=== PATIENT | female | born 1995 | race Caucasian/White ===

== ENCOUNTER 2019-01-19 14:19 | Observation (INO) | payer BC ==
[2019-01-19] MEDS: Lactated Ringers 1,000 ML IV ONE ×2 (15:27→16:58)
[2019-01-19] MEDS ORDERED: Magnesium Sulfate/Water 4 GM in Premix Bag 1 BAG IV ONE (16:16)
[2019-01-19] MEDS ORDERED: Indomethacin 25 MG Cap PO PRN ×2 (16:16→22:22)
[2019-01-19] MEDS ORDERED: Calcium Gluconate 10% 1 GM/10 ML SDV IVPUSH PRN (16:16)
[2019-01-19] MEDS ORDERED: Betamethasone Acetate/Betamethasone Sod Phosphate 30 MG/5 ML MDV IM SCH (16:30)
[2019-01-19] MEDS: Magnesium Sulfate/Water 20 GM/500 ML BAG IV SCH (17:32)
[2019-01-19] MEDS ORDERED: Lactated Ringers 1,000 ML IV SCH (19:15)
[2019-01-20] MEDS: Magnesium Sulfate/Water 20 GM/500 ML BAG IV SCH (02:41)
[2019-01-20] MEDS ORDERED: Indomethacin 25 MG Cap PO ONE (10:20)
--- NOTE | 2019-01-28 22:20 | PCM.LDHP ---
L&D History of Present Illness - General Date of Service: 01/19/19 Admit Problem/Dx: contraction History Limitations: Reports: No Limitations - History of Present Illness Introduction:: 23yo at 26w5d presenting with leakage of fluid and contractions. Patient reports felt small gush and then started to have regular contraction q5min. No bleeding. +FM. Uncomplicated . Reports had contractions the prior and delivered at term. - Related Data Allergies/Adverse Reactions: Allergies Allergy/AdvReac Type Severity Reaction Status Date / Time No Known Allergies Allergy Verified 01/19/19 14:34 Home Medications: Home Meds Ascorbic Acid [Vitamin C] 1,000 mg PO 01/19/19 [History] Docusate Sodium [Colace] 1 cap PO DAILY 01/19/19 [History] PNV95/Ferrous Fumarate/FA [ Vitamin Tablet] 1 tab PO DAILY 01/19/19 [ History] Polyethylene Glycol 3350 [MiraLAX] 1 packet PO DAILY 01/19/19 [History] Past Medical History [employer] History: Reports: Psychiatric History: Reports: Anxiety, Other (See Below) Other Psychiatric History: recovering addict, 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 - Infectious Disease History Infectious Disease History: Reports: None - Past Surgical History HEENT Surgical History: Reports: Tonsillectomy GI Surgical History: Reports: Cholecystectomy, Other (See Below) Other GI Surgeries/Procedures: Hemmorhoidectomy x2 Musculoskeletal Surgical History: Reports: Other (See Below) Other Musculoskeletal Surgeries/Procedures:: bunionectomy Social & Family History - Family History Family Medical History: Noncontributory - Tobacco Use Smoking Status *Q: Former Smoker Used Tobacco, but Quit: Yes Month/Year Tobacco Last Used: 11/2018 Tobacco Use Comment: Quit cigarettes 2014, quit vaping 2 months ago. Second Hand Smoke Exposure: No H&P Review of Systems - Review of Systems: Review Of Systems: See Below General: Reports: No Symptoms HEENT: Reports: No Symptoms Pulmonary: Reports: No Symptoms Cardiovascular: Reports: No Symptoms Gastrointestinal: Reports: No Symptoms Genitourinary: Reports: Discharge (clear) Musculoskeletal: Reports: No Symptoms Skin: Reports: No Symptoms Psychiatric: Reports: No Symptoms L&D Exam - Exam Exam: See Below - Vital Signs Weight: 152 lb 8 oz - OB Specific Contraction Intensity: Moderate Movement: Active Heart Tones: Present Heart Tones per Min: 130 Heart Rate (FHR) Variability: Moderate (6-25 bmp) Presentation: Vertex - Exam General: Alert, Oriented, Cooperative Lungs: Normal Respiratory Effort GI/Abdominal Exam: Normal Bowel Sounds, Soft, Non-Tender, No Distention Genitourinary: Other (No pooling. ). No: Cervical discharge, Vaginal bleeding Extremities: Normal Inspection, Non-Tender, No Pedal Edema Skin: Warm, Dry, Intact Psychiatric: Alert, Normal Affect, Normal Mood - Patient Data Result Diagrams: 01/19/19 16:50 Problem List Initiated/Reviewed/Updated: Yes Assessment/Plan Comment:: 23yo presenting with leakage of fluid and labor. Reassuring status. - membranes intact: neg pooling, ferning and amniosure test - pelvic /-3, continue to have regular contractions - Category 1 tracing - Admit for OBS due to suspected labor - clear liquids, IVF - admit labs, continuous monitoring - FFN sent - MgSO4 for 24hr for neuroprotection - indomethacin 50mg PO loading for tocolysis, continue 25mg q8h if persistent contractions - betamethasone course - monitor closely, will transfer patient to higher level of care if progressing in labor
== END 2019-01-20 11:40 | disposition home or self-care (01) ==
LOC: MW.OB 14:19
PROVIDERS: ADMIT Obstetrics & Gynecology; ATTEND Obstetrics & Gynecology
DX: O60.02 Preterm labor without delivery, second trimester (principal); O09.212 Supervision of pregnancy with history of pre-term labor, second trimester; Z3A.26 26 weeks gestation of pregnancy; Z87.891 Personal history of nicotine dependence; Z79.899 Other long term (current) drug therapy; Z03.71 Encounter for suspected problem with amniotic cavity and membrane ruled out
CPT/HCPCS: 36415; 81001; 82731; 83735; 84112; 85027; 86850; 86900; 86901; 87081; 87491; 87591; 96361; 96365; 96366; 96372; 96376; A9270; G0378; J0702; J3475; J7120; 90471

== ENCOUNTER 2019-04-20 14:33 | Inpatient (IN) | payer BC ==
[2019-04-21] MEDS ORDERED: Nalbuphine 10 MG/1 ML Vial IVPUSH PRN (02:23)
[2019-04-21] MEDS ORDERED: Ondansetron 4 MG/2 ML SDV IVPUSH PRN (02:23)
[2019-04-21] MEDS ORDERED: Sodium Chloride 0.9% 2.5 ML Syringe FLUSH PRN (02:23)
[2019-04-21] MEDS ORDERED: Butorphanol 1 MG/ML SDV IVPUSH PRN (02:23)
[2019-04-21] MEDS ORDERED: Tranexamic Acid 1,000 MG in Sodium Chloride 0.9% 100 ML IV PRN (02:23)
[2019-04-21] MEDS ORDERED: Carboprost Tromethamine 250 MCG/1 ML Amp IM PRN (02:23)
[2019-04-21] MEDS ORDERED: Lidocaine 1% 50 ML MDV INJECT PRN (02:23)
[2019-04-21] MEDS ORDERED: Misoprostol 200 MCG Tab PO PRN (02:23)
[2019-04-21] MEDS ORDERED: Sodium Chloride 0.9% 10 ML SDV IV PRN (02:23)
[2019-04-21] MEDS ORDERED: Methylergonovine 0.2 MG/1 ML Amp IM PRN (02:23)
[2019-04-21] MEDS ORDERED: Water For Irrigation,Sterile 1,000 ML Container IRR PRN (02:23)
[2019-04-21] MEDS ORDERED: Sodium Chloride 0.9% 10 ML Syringe FLUSH PRN (02:23)
[2019-04-21] MEDS ORDERED: Oxytocin/0.9 % Sodium Chloride 30 UNIT/500 ML BAG IV SCH (02:30)
[2019-04-21] MEDS: Lactated Ringers 1,000 ML IV SCH ×2 (03:57→10:38)
--- NOTE | 2019-04-21 07:54 | PCM.PREANE ---
Preanesthetic Assessment - Anesthesia/Transfusion/Family Hx Anesthesia History: Prior Anesthesia Without Reaction Family History of Anesthesia Reaction: No Transfusion History: No Prior Transfusion(s) - Review of Systems General: No Symptoms Pulmonary: No Symptoms Cardiovascular: No Symptoms Gastrointestinal: No Symptoms Neurological: No Symptoms Other: Reports: None - Physical Assessment Height: 5 ft 2 in Weight: 73.028 kg ASA Class: 2 Mental Status: Alert & Oriented x3 Airway Class: Mallampati = 2 Dentition: Reports: Normal Dentition Thyro-Mental Finger Breadths: 3 Mouth Opening Finger Breadths: 3 ROM/Head Extension: Full Lungs: Clear to Auscultation, Normal Respiratory Effort Cardiovascular: Regular Rate, Regular Rhythm - Lab Values: Laboratory Last Values WBC 13.66 K/uL (4.0-11.0) H 04/21/19 03:38 RBC 4.33 M/uL (4.30-5.90) 04/21/19 03:38 Hgb 14.0 g/dL (12.0-16.0) 04/21/19 03:38 Hct 40.1 % (36.0-46.0) 04/21/19 03:38 MCV 92.6 fL (80.0-98.0) 04/21/19 03:38 MCH 32.3 pg (27.0-32.0) H 04/21/19 03:38 MCHC 34.9 g/dL (31.0-37.0) 04/21/19 03:38 RDW Std Deviation 44.1 fl (28.0-62.0) 04/21/19 03:38 RDW Coeff of Diego 13 % (11.0-15.0) 04/21/19 03:38 Plt Count 209 K/uL (150-400) 04/21/19 03:38 MPV 9.80 fL (7.40-12.00) 04/21/19 03:38 Nucleated RBC % 0.0 /100WBC 04/21/19 03:38 Nucleated RBCs # 0 K/uL 04/21/19 03:38 - Allergies Allergies/Adverse Reactions: Allergies Allergy/AdvReac Type Severity Reaction Status Date / Time No Known Allergies Allergy Verified 01/19/19 14:34 - Acknowledgements Anesthesia Type Planned: Epidural Pt an Appropriate Candidate for the Planned Anesthesia: Yes Alternatives and Risks of Anesthesia Discussed w Pt/Guardian: Yes Pt/Guardian Understands and Agrees with Anesthesia Plan: Yes PreAnesthesia Questionnaire HEENT History: Reports: None Cardiovascular History: Reports: None Respiratory History: Reports: None Gastrointestinal History: Reports: GERD Genitourinary History: Reports: None [employer]PER[employer] History: Reports: , Spontaneous LMP (Approximate): Musculoskeletal History: Reports: None Neurological History: Reports: None Psychiatric History: Reports: Anxiety, Other (See Below) Other Psychiatric History: recovering addict, 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 Endocrine/Metabolic History: Reports: None Hematologic History: Reports: None Immunologic History: Reports: None Oncologic (Cancer) History: Reports: None Dermatologic History: Reports: None - Infectious Disease History Infectious Disease History: Reports: None - Past Surgical History HEENT Surgical History: Reports: Tonsillectomy GI Surgical History: Reports: Cholecystectomy, Other (See Below) Other GI Surgeries/Procedures: Hemmorhoidectomy x2 Musculoskeletal Surgical History: Reports: Other (See Below) Other Musculoskeletal Surgeries/Procedures:: bunionectomy - SUBSTANCE USE Smoking Status *Q: Former Smoker Tobacco Use Within Last Twelve Months: No Recreational Drug Use History: No - HOME MEDS Home Medications: Home Meds Ascorbic Acid [Vitamin C] 1,000 mg PO 01/19/19 [History] Docusate Sodium [Colace] 1 cap PO DAILY 01/19/19 [History] Pnv No.95/Ferrous Fum/Folic AC [ Vitamin Tablet] 1 tab PO DAILY [History] Polyethylene Glycol 3350 [MiraLAX] 1 packet PO DAILY 01/19/19 [History] - CURRENT (IN HOUSE) MEDS Current Meds: Current Medications Butorphanol Tartrate (Stadol) 1 mg IVPUSH Q1H PRN PRN Reason: Pain Carboprost Tromethamine (Hemabate Ds) 250 mcg IM ASDIRECTED PRN PRN Reason: Post Hemorrhage Tranexamic Acid 1,000 mg/ (Sodium Chloride) 110 mls @ 660 mls/hr IV ONETIME PRN PRN Reason: Bleeding Lactated Ringer's (Ringers, Lactated) 1,000 mls @ 150 mls/hr IV ASDIRECTED BETZAIDA Last Admin: 04/21/19 03:57 Dose: 150 mls/hr Oxytocin/Sodium Chloride (Oxytocin 30 Unit/500 Ml-Ns) 30 unit in 500 mls @ 500 mls/hr IV TITRATE BETZAIDA Lidocaine HCl (Xylocaine 1%) 50 ml INJECT ONETIME PRN PRN Reason: Laceration repair Methylergonovine Maleate (Methergine) 0.2 mg IM ASDIRECTED PRN PRN Reason: Post Hemorrhage Misoprostol (Cytotec) 200 mcg PO ONETIME PRN PRN Reason: Post Hemorrhage Nalbuphine HCl (Nubain) 10 mg IVPUSH Q1H PRN PRN Reason: Pain (severe 7-10) Ondansetron HCl (Zofran) 4 mg IVPUSH Q6H PRN PRN Reason: Nausea/Vomiting Sodium Chloride (Saline Flush) 10 ml FLUSH ASDIRECTED PRN PRN Reason: Keep Vein Open Sodium Chloride (Saline Flush) 2.5 ml FLUSH ASDIRECTED PRN PRN Reason: Keep Vein Open Sodium Chloride (Normal Saline) 10 ml IV ASDIRECTED PRN PRN Reason: IV Use Sterile Water (Sterile Water For Irrigation) 1,000 ml IRR ASDIRECTED PRN PRN Reason: delivery
[2019-04-21] MEDS ORDERED: Bupivicaine/fentaNYL/NS 250 ML ONE (08:08)
[2019-04-21] MEDS ORDERED: oxyCODONE 5 MG Tab PO PRN (15:06)
[2019-04-21] MEDS ORDERED: Docusate Sodium 100 MG Cap PO PRN (15:06)
[2019-04-21] MEDS ORDERED: Bisacodyl 10 MG Supp RECTAL PRN (15:06)
[2019-04-21] MEDS ORDERED: Lanolin 100% Cream 7 GM Tube TOP PRN (15:06)
[2019-04-21] MEDS ORDERED: Benzocaine/Menthol 20%-0.5% Spray 78 GM Cannister TOP PRN (15:06)
[2019-04-21] MEDS ORDERED: Witch Hazel Medicated Pads 40/Jar TOP PRN (15:06)
[2019-04-21] MEDS ORDERED: Ibuprofen 400 MG Tab PO PRN (15:06)
[2019-04-21] MEDS ORDERED: Acetaminophen 500 MG Tab PO PRN (15:06)
--- NOTE | 2019-04-21 15:10 | PCM.DEL ---
L & D Note - General Info Date of Service: 04/21/19 Mother's Due Date: 04/22/19 - Delivery Note Labor: Spontaneous, Augmented by ARM Delivery Outcome: Livebirth Presentation: Left Occiput Anterior (ABRAHAM) Nuchal Cord: None Anesthesia Type: None, Epidural Anesthetic: Lidocaine (Xylocaine) 1% Plain Local Anesthetic Volume: 2cc Amniotic Fluid Description: Clear Episiotomy Type: None Laceration: 1st Degree Suture type: Other (monocryl ) Suture size: 3-0 Placenta: Intact Cord: 3 Vessels Estimated Blood Loss: 300 Resuscitation Needed: No Score 1 min: 9 Score 5 min: 10 Delivery Comments (Free Text/Narrative):: Live male delivered at 1433 , 9 , 10 , weight pending - General Info Date of Service: 04/21/19 - Patient Data Weight - Most Recent: 73.028 kg Lab Results Last 24 Hours: Laboratory Results - last 24 hr 04/21/19 04/21/19 Range/Units 03:38 03:38 WBC 13.66 H (4.0-11.0) K/uL RBC 4.33 (4.30-5.90) M/uL Hgb 14.0 (12.0-16.0) g/dL Hct 40.1 (36.0-46.0) % MCV 92.6 (80.0-98.0) fL MCH 32.3 H (27.0-32.0) pg MCHC 34.9 (31.0-37.0) g/dL RDW Std Deviation 44.1 (28.0-62.0) fl RDW Coeff of Diego 13 (11.0-15.0) % Plt Count 209 (150-400) K/uL MPV 9.80 (7.40-12.00) fL Nucleated RBC % 0.0 /100WBC Nucleated RBCs # 0 K/uL Blood Type A POSITIVE Antibody Screen POSITIVE Prewarmed Antibody Srcn NEGATIVE Antibody Identification Cancelled Cold Antibody Screen POSITIVE Med Orders - Current: Current Medications Acetaminophen (Tylenol Extra Strength) 500 mg PO Q4H PRN PRN Reason: Pain Acetaminophen (Tylenol Extra Strength) 1,000 mg PO Q4H PRN PRN Reason: Pain Benzocaine/Menthol (Dermoplast Pain Relief 20%-0.5% [place]) 78 gm TOP ASDIRECTED PRN PRN Reason: Perineal Comfort Measure Bisacodyl (Dulcolax) 10 mg RECTAL ONETIME PRN PRN Reason: Constipation Butorphanol Tartrate (Stadol) 1 mg IVPUSH Q1H PRN PRN Reason: Pain Carboprost Tromethamine (Hemabate Ds) 250 mcg IM ASDIRECTED PRN PRN Reason: Post Hemorrhage Docusate Sodium (Colace) 100 mg PO BID PRN PRN Reason: Constipation Emollient Ointment (Lansinoh Hpa) 0 gm TOP ASDIRECTED PRN PRN Reason: Sore Nipples Tranexamic Acid 1,000 mg/ (Sodium Chloride) 110 mls @ 660 mls/hr IV ONETIME PRN PRN Reason: Bleeding Lactated Ringer's (Ringers, Lactated) 1,000 mls @ 150 mls/hr IV ASDIRECTED BETZAIDA Last Admin: 04/21/19 03:57 Dose: 150 mls/hr Oxytocin/Sodium Chloride (Oxytocin 30 Unit/500 Ml-Ns) 30 unit in 500 mls @ 500 mls/hr IV TITRATE [facility] Ibuprofen (Motrin) 400 mg PO Q4H PRN PRN Reason: Pain Ibuprofen (Motrin) 800 mg PO Q6H PRN PRN Reason: Pain Lidocaine HCl (Xylocaine 1%) 50 ml INJECT ONETIME PRN PRN Reason: Laceration repair Methylergonovine Maleate (Methergine) 0.2 mg IM ASDIRECTED PRN PRN Reason: Post Hemorrhage Misoprostol (Cytotec) 200 mcg PO ONETIME PRN PRN Reason: Post Hemorrhage Nalbuphine HCl (Nubain) 10 mg IVPUSH Q1H PRN PRN Reason: Pain (severe 7-10) Ondansetron HCl (Zofran) 4 mg IVPUSH Q6H PRN PRN Reason: Nausea/Vomiting Oxycodone HCl (Oxycodone) 5 mg PO Q2H PRN PRN Reason: Pain Sodium Chloride (Saline Flush) 10 ml FLUSH ASDIRECTED PRN PRN Reason: Keep Vein Open Sodium Chloride (Saline Flush) 2.5 ml FLUSH ASDIRECTED PRN PRN Reason: Keep Vein Open Sodium Chloride (Normal Saline) 10 ml IV ASDIRECTED PRN PRN Reason: IV Use Sterile Water (Sterile Water For Irrigation) 1,000 ml IRR ASDIRECTED PRN PRN Reason: delivery Witch Aruna (Tucks) 1 pad TOP ASDIRECTED PRN PRN Reason: comfort care Discontinued Medications Fentanyl/Bupivacaine HCl (Fentanyl/Bupivacaine/Ns 2 Mcg-0.125% 250 Ml) Confirm Administered Dose 250 mls @ as directed .ROUTE .STK-MED ONE Stop: 04/21/19 08:09 - Problem List & Annotations (1) Vaginal delivery SNOMED Code(s): 123161835 Code(s): O80 - ENCOUNTER FOR FULL-TERM UNCOMPLICATED DELIVERY Status: Acute Current Visit: Yes - Problem List Review Problem List Initiated/Reviewed/Updated: No - My Orders Last 24 Hours: My Active Orders 04/21/19 15:06 May Shower [RC] ASDIRECTED Up ad Joyce [RC] ASDIRECTED Vital Signs [RC] PER UNIT ROUTINE Acetaminophen [Tylenol Extra Strength] 1,000 mg PO Q4H PRN Acetaminophen [Tylenol Extra Strength] 500 mg PO Q4H PRN Benzocaine/Menthol [Dermoplast Pain Relief 20%-0.5% [place]] 78 gm TOP ASDIRECTED PRN Bisacodyl [Dulcolax] 10 mg RECTAL ONETIME PRN Docusate Sodium [Colace] 100 mg PO BID PRN Ibuprofen [Motrin] 400 mg PO Q4H PRN Ibuprofen [Motrin] 800 mg PO Q6H PRN Lanolin [Lansinoh HPA] See Dose Instructions TOP ASDIRECTED PRN Jose Valdovinos [Tucks] 1 pad TOP ASDIRECTED PRN oxyCODONE 5 mg PO Q2H PRN Assess Lochia [WOMSER] Per Unit Routine Assess Uterine Involution [WOMSER] Per Unit Routine Peripheral IV Discontinue [OM.PC] Routine 04/22/19 05:11 HEMOGLOBIN/HEMATOCRIT,HH [HEME] Timed
[2019-04-21] MEDS: Ibuprofen 800 MG Tab PO PRN (17:47)
[2019-04-21] MEDS: Acetaminophen 500 MG Tab PO PRN (17:48)
--- NOTE | 2019-04-22 07:23 | PCM.POSTAN ---
POST ANESTHESIA ASSESSMENT - VITAL SIGNS Vital Signs: Last Vital Signs Temp 36.6 C 04/22/19 04:00 Pulse 69 04/22/19 04:00 Resp 14 04/22/19 04:00 BP 101/50 L 04/22/19 04:00 Pulse Ox 96 04/22/19 04:00 - RESPIRATORY Respiratory Status: Respiratory Rate WNL - CARDIOVASCULAR CV Status: Pulse Rate WNL - GASTROINTESTINAL GI Status: No Symptoms - POST OP HYDRATION Hydration Status: Adequate & Stable
--- NOTE | 2019-04-22 07:23 | PCM48HPAN ---
Post Anesthesia Note - EVALUATION WITHIN 48HRS OF ANESTHETIC Vital Signs in Normal Range: Yes Patient Participated in Evaluation: Yes Respiratory Function Stable: Yes Airway Patent: Yes Cardiovascular Function Stable: Yes Hydration Status Stable: Yes Pain Control Satisfactory: Yes Nausea and Vomiting Control Satisfactory: Yes Mental Status Recovered: Yes Vital Signs: Last Vital Signs Temp 36.6 C 04/22/19 04:00 Pulse 69 04/22/19 04:00 Resp 14 04/22/19 04:00 BP 101/50 L 04/22/19 04:00 Pulse Ox 96 04/22/19 04:00
--- NOTE | 2019-04-22 09:18 | PCM.PNPP ---
- General Info Date of Service: 04/22/19 Functional Status: Reports: Pain Controlled, Tolerating Diet, Ambulating, Urinating, Other (. Baby having O2 desaturation when feeding. Bleeding is light. ) - Review of Systems General: Reports: No Symptoms HEENT: Reports: No Symptoms Pulmonary: Reports: No Symptoms Cardiovascular: Reports: No Symptoms Gastrointestinal: Reports: No Symptoms Genitourinary: Reports: No Symptoms Musculoskeletal: Reports: No Symptoms Skin: Reports: No Symptoms Neurological: Reports: No Symptoms Psychiatric: Reports: No Symptoms - Patient Data Vital Signs - Most Recent: Last Vital Signs Temp 36.6 C 04/22/19 04:00 Pulse 69 04/22/19 04:00 Resp 14 04/22/19 04:00 BP 101/50 L 04/22/19 04:00 Pulse Ox 96 04/22/19 04:00 Weight - Most Recent: 161 lb Lab Results - Last 24 Hours: Laboratory Results - last 24 hr 04/21/19 04/22/19 Range/Units 03:38 05:53 Hgb 12.6 (12.0-16.0) g/dL Hct 38.3 (36.0-46.0) % Blood Type A POSITIVE Antibody Screen POSITIVE Prewarmed Antibody Srcn NEGATIVE Antibody Identification Cancelled Cold Antibody Screen POSITIVE Med Orders - Current: Current Medications Acetaminophen (Tylenol Extra Strength) 500 mg PO Q4H PRN PRN Reason: Pain Acetaminophen (Tylenol Extra Strength) 1,000 mg PO Q4H PRN PRN Reason: Pain Last Admin: 04/21/19 17:48 Dose: 1,000 mg Benzocaine/Menthol (Dermoplast Pain Relief 20%-0.5% [place]) 78 gm TOP ASDIRECTED PRN PRN Reason: Perineal Comfort Measure Last Admin: 04/21/19 17:48 Dose: 78 gm Bisacodyl (Dulcolax) 10 mg RECTAL ONETIME PRN PRN Reason: Constipation Butorphanol Tartrate (Stadol) 1 mg IVPUSH Q1H PRN PRN Reason: Pain Carboprost Tromethamine (Hemabate Ds) 250 mcg IM ASDIRECTED PRN PRN Reason: Post Hemorrhage Docusate Sodium (Colace) 100 mg PO BID PRN PRN Reason: Constipation Emollient Ointment (Lansinoh Hpa) 0 gm TOP ASDIRECTED PRN PRN Reason: Sore Nipples Tranexamic Acid 1,000 mg/ (Sodium Chloride) 110 mls @ 660 mls/hr IV ONETIME PRN PRN Reason: Bleeding Lactated Ringer's (Ringers, Lactated) 1,000 mls @ 150 mls/hr IV ASDIRECTED COUNT INCLUDES THE [facility] Last Admin: 04/21/19 10:38 Dose: 150 mls/hr Oxytocin/Sodium Chloride (Oxytocin 30 Unit/500 Ml-Ns) 30 unit in 500 mls @ 500 mls/hr IV TITRATE COUNT INCLUDES THE [facility] Last Admin: 04/21/19 13:37 Dose: 500 mls/hr Ibuprofen (Motrin) 400 mg PO Q4H PRN PRN Reason: Pain Ibuprofen (Motrin) 800 mg PO Q6H PRN PRN Reason: Pain Last Admin: 04/21/19 17:47 Dose: 800 mg Lidocaine HCl (Xylocaine 1%) 50 ml INJECT ONETIME PRN PRN Reason: Laceration repair Methylergonovine Maleate (Methergine) 0.2 mg IM ASDIRECTED PRN PRN Reason: Post Hemorrhage Misoprostol (Cytotec) 200 mcg PO ONETIME PRN PRN Reason: Post Hemorrhage Nalbuphine HCl (Nubain) 10 mg IVPUSH Q1H PRN PRN Reason: Pain (severe 7-10) Ondansetron HCl (Zofran) 4 mg IVPUSH Q6H PRN PRN Reason: Nausea/Vomiting Oxycodone HCl (Oxycodone) 5 mg PO Q2H PRN PRN Reason: Pain Sodium Chloride (Saline Flush) 10 ml FLUSH ASDIRECTED PRN PRN Reason: Keep Vein Open Sodium Chloride (Saline Flush) 2.5 ml FLUSH ASDIRECTED PRN PRN Reason: Keep Vein Open Sodium Chloride (Normal Saline) 10 ml IV ASDIRECTED PRN PRN Reason: IV Use Sterile Water (Sterile Water For Irrigation) 1,000 ml IRR ASDIRECTED PRN PRN Reason: delivery Witch Aruna (Tucks) 1 pad TOP ASDIRECTED PRN PRN Reason: comfort care Discontinued Medications Fentanyl/Bupivacaine HCl (Fentanyl/Bupivacaine/Ns 2 Mcg-0.125% 250 Ml) Confirm Administered Dose 250 mls @ as directed .ROUTE .K-MED ONE Stop: 04/21/19 08:09 - Infant Interaction Infant Disposition, : [place] to Nursery Infant Interaction: Holding Support Person: - Recovery Exam Fundal Tone: Firm Fundal Level: At Umbilicus Fundal Placement: Midline Lochia Amount: Small Lochia Color: Rubra/Red Perineum Description: Edematous Episiotomy/Laceration: Approximated Bladder Status: Nonpalpable - Exam General: Alert, Oriented, Cooperative, No Acute Distress HEENT: Pupils Equal, Pupils Reactive, EOMI Neck: Supple, Trachea Midline, No JVD Lungs: Normal Respiratory Effort GI/Abdominal Exam: Soft, Non-Tender, No Distention Extremities: Normal Inspection, Normal Range of Motion, Non-Tender, No Pedal Edema Skin: Warm, Dry, Intact Neurological: No New Focal Deficit Psy/Mental Status: Alert, Normal Affect, Normal Mood - Problem List Review Problem List Initiated/Reviewed/Updated: No - My Orders Last 24 Hours: My Active Orders 04/22/19 09:06 Ready for Discharge [RC] PER UNIT ROUTINE - Assessment Assessment:: PPD1 s/p , stable and doing well. - Plan Plan:: VSS Hgb 12, bleeding light, no s/s of anemia Ambulating and voiding and pumping, baby has some desaturations when feeding, being evaluated Stable for discharge home if baby is stable to be discharged Reviewed care instructions
[2019-04-22] MEDS: Ibuprofen 800 MG Tab PO PRN ×2 (11:20→21:54)
[2019-04-22] MEDS: Acetaminophen 500 MG Tab PO PRN ×2 (11:22→21:55)
--- NOTE | 2019-04-23 10:55 | PCM.PNPP ---
- General Info Date of Service: 04/23/19 Functional Status: Reports: Pain Controlled, Tolerating Diet, Ambulating, Urinating - Review of Systems General: Reports: No Symptoms HEENT: Reports: No Symptoms Pulmonary: Reports: No Symptoms Cardiovascular: Reports: No Symptoms Gastrointestinal: Reports: No Symptoms Genitourinary: Reports: No Symptoms Musculoskeletal: Reports: No Symptoms Skin: Reports: No Symptoms Neurological: Reports: No Symptoms Psychiatric: Reports: No Symptoms - Patient Data Vital Signs - Most Recent: Last Vital Signs Temp 36.1 C 04/23/19 07:55 Pulse 66 04/23/19 07:55 Resp 16 04/23/19 07:55 BP 110/76 04/23/19 07:55 Pulse Ox 95 04/23/19 07:55 Weight - Most Recent: 161 lb Med Orders - Current: Current Medications Acetaminophen (Tylenol Extra Strength) 500 mg PO Q4H PRN PRN Reason: Pain Acetaminophen (Tylenol Extra Strength) 1,000 mg PO Q4H PRN PRN Reason: Pain Last Admin: 04/22/19 21:55 Dose: 1,000 mg Benzocaine/Menthol (Dermoplast Pain Relief 20%-0.5% [place]) 78 gm TOP ASDIRECTED PRN PRN Reason: Perineal Comfort Measure Last Admin: 04/21/19 17:48 Dose: 78 gm Bisacodyl (Dulcolax) 10 mg RECTAL ONETIME PRN PRN Reason: Constipation Butorphanol Tartrate (Stadol) 1 mg IVPUSH Q1H PRN PRN Reason: Pain Carboprost Tromethamine (Hemabate Ds) 250 mcg IM ASDIRECTED PRN PRN Reason: Post Hemorrhage Docusate Sodium (Colace) 100 mg PO BID PRN PRN Reason: Constipation Emollient Ointment (Lansinoh Hpa) 0 gm TOP ASDIRECTED PRN PRN Reason: Sore Nipples Tranexamic Acid 1,000 mg/ (Sodium Chloride) 110 mls @ 660 mls/hr IV ONETIME PRN PRN Reason: Bleeding Lactated Ringer's (Ringers, Lactated) 1,000 mls @ 150 mls/hr IV ASDIRECTED BETZAIDA Last Admin: 04/21/19 10:38 Dose: 150 mls/hr Oxytocin/Sodium Chloride (Oxytocin 30 Unit/500 Ml-Ns) 30 unit in 500 mls @ 500 mls/hr IV TITRATE BETZAIDA Last Admin: 04/21/19 13:37 Dose: 500 mls/hr Ibuprofen (Motrin) 400 mg PO Q4H PRN PRN Reason: Pain Ibuprofen (Motrin) 800 mg PO Q6H PRN PRN Reason: Pain Last Admin: 04/22/19 21:54 Dose: 800 mg Lidocaine HCl (Xylocaine 1%) 50 ml INJECT ONETIME PRN PRN Reason: Laceration repair Methylergonovine Maleate (Methergine) 0.2 mg IM ASDIRECTED PRN PRN Reason: Post Hemorrhage Misoprostol (Cytotec) 200 mcg PO ONETIME PRN PRN Reason: Post Hemorrhage Nalbuphine HCl (Nubain) 10 mg IVPUSH Q1H PRN PRN Reason: Pain (severe 7-10) Ondansetron HCl (Zofran) 4 mg IVPUSH Q6H PRN PRN Reason: Nausea/Vomiting Oxycodone HCl (Oxycodone) 5 mg PO Q2H PRN PRN Reason: Pain Sodium Chloride (Saline Flush) 10 ml FLUSH ASDIRECTED PRN PRN Reason: Keep Vein Open Sodium Chloride (Saline Flush) 2.5 ml FLUSH ASDIRECTED PRN PRN Reason: Keep Vein Open Sodium Chloride (Normal Saline) 10 ml IV ASDIRECTED PRN PRN Reason: IV Use Sterile Water (Sterile Water For Irrigation) 1,000 ml IRR ASDIRECTED PRN PRN Reason: delivery Witch Aruna (Tucks) 1 pad TOP ASDIRECTED PRN PRN Reason: comfort care Discontinued Medications Fentanyl/Bupivacaine HCl (Fentanyl/Bupivacaine/Ns 2 Mcg-0.125% 250 Ml) Confirm Administered Dose 250 mls @ as directed .ROUTE .STK-MED ONE Stop: 04/21/19 08:09 - Infant Interaction Disposition, : [place] to Nursery Infant Interaction: Holding Infant Feeding: Breastfed Infant; Nursed Well Support Person: - Recovery Exam Fundal Tone: Firm Fundal Level: 1 Fingerbreadths Below Umbilicus Fundal Placement: Midline Lochia Amount: Scant Lochia Color: Rubra/Red Perineum Description: Other (see below) Other Perinuem Description: 1st degree laceration. Episiotomy/Laceration: Approximated Bladder Status: Voiding - Exam General: Alert, Oriented, Cooperative, No Acute Distress HEENT: Pupils Equal, Pupils Reactive, EOMI Neck: Supple, Trachea Midline, No JVD Lungs: Normal Respiratory Effort GI/Abdominal Exam: Soft, Non-Tender, No Distention Extremities: Normal Inspection, Normal Range of Motion, Non-Tender, No Pedal Edema Skin: Warm, Dry, Intact Wound/Incisions: Healing Well Neurological: No New Focal Deficit Psy/Mental Status: Alert, Normal Affect, Normal Mood - Problem List Review Problem List Initiated/Reviewed/Updated: Yes - My Orders Last 24 Hours: My Active Orders 04/23/19 10:52 Ready for Discharge [RC] PER UNIT ROUTINE - Assessment Assessment:: PPD2 s/p , stable and doing well. - Plan Plan:: VSS Hgb 12, bleeding light, no s/s of anemia Ambulating and voiding baby well now Stable for discharge home Reviewed care instructions
== END 2019-04-23 11:53 | disposition home or self-care (01) | DRG 560 ==
LOC: MW.OB 14:33 → OBSVTOIN 04-21 14:33 → MW.OB 04-21 19:53
PROVIDERS: ADMIT Obstetrics & Gynecology; ATTEND Obstetrics & Gynecology
PROC: 10E0XZZ Delivery of Products of Conception, External Approach (ICD-10-PCS; principal; 2019-04-21)
PROC: 10907ZC Drainage of Amniotic Fluid, Therapeutic from Products of Conception, Via Natural or Artificial Opening (ICD-10-PCS; 2019-04-21)
PROC: 0HQ9XZZ Repair Perineum Skin, External Approach (ICD-10-PCS; 2019-04-21)
PROC: 3E0R3BZ Introduction of Anesthetic Agent into Spinal Canal, Percutaneous Approach (ICD-10-PCS; 2019-04-21)
DX: O70.0 First degree perineal laceration during delivery (principal); Z37.0 Single live birth; Z3A.39 39 weeks gestation of pregnancy
CPT/HCPCS: 36415; 59025; 59409; 85014; 85018; 85027; 86156; 86593; 86850; 86900; 86901; A9270-GY; J2590; J7120

== ENCOUNTER 2022-01-14 18:42 | Emergency (ER) | payer BC ==
[2022-01-14] MEDS ORDERED: Sodium Chloride 0.9% 2.5 ML Syringe FLUSH PRN (19:23)
[2022-01-14] MEDS ORDERED: Sodium Chloride 0.9% 10 ML Syringe FLUSH PRN (19:23)
[2022-01-14] MEDS ORDERED: Sodium Chloride 0.9% 1,000 ML IV ONE ×2 (19:24→21:59)
[2022-01-14 22:03] LABS: CARBON DIOXIDE,CO2 27.4 mmol/L (21.0-32.0); POTASSIUM,K 3.8 mmol/L (3.5-5.1)
[2022-01-14] MEDS ORDERED: Iopamidol 755 MG/ML 500 ML Multipack Bottle IVPUSH STA (22:34)
[2022-01-15 00:11] LABS: C. TRACHOMATIS BY PCR NOT DETECTED; N. GONORRHOEAE BY PCR NOT DETECTED
== END 2022-01-15 00:15 | disposition home or self-care (01) ==
LOC: MW.ED 18:42
DX: N76.0 Acute vaginitis (principal); B96.89 Other specified bacterial agents as the cause of diseases classified elsewhere; Z79.899 Other long term (current) drug therapy; Z90.49 Acquired absence of other specified parts of digestive tract
CPT/HCPCS: 36415; 74177; 80053; 81003; 81025; 85025; 87480; 87491; 87510; 87591; 87660; 96360; 96361; 99284; J7030; Q9967

== ENCOUNTER 2022-03-02 09:04 | Day surgery (SDC) | payer BC ==
[~2022-03-02 09:04] MED LIST: Bupivacaine 0.25% 30 ML SDV ONE; Lactated Ringers 1,000 ML IV SCH; Methylene Blue 50 MG/10 ML Ampule ONE
[2022-03-02] MEDS ORDERED: Succinylcholine/Sod PF 100 MG/5 ML SYRINGE IV ONE (10:12)
[2022-03-02] MEDS ORDERED: fentaNYL 100 MCG/2 ML SDV ONE (10:12)
[2022-03-02] MEDS ORDERED: Propofol 200 MG/20 ML SDV ONE (10:12)
[2022-03-02] MEDS ORDERED: Lidocaine 2% 5 ML SDV ONE (10:12)
[2022-03-02] MEDS ORDERED: Water For Injection, Sterile 20 ML ONE (10:13)
[2022-03-02] MEDS ORDERED: Morphine 2 MG/ML SYRINGE IVPUSH PRN (10:13)
[2022-03-02] MEDS ORDERED: Dexmedetomidine 200 MCG/2 ML SDV ONE (10:13)
[2022-03-02] MEDS ORDERED: Ondansetron 4 MG/2 ML SDV IVPUSH PRN (10:13)
[2022-03-02] MEDS ORDERED: Albuterol 0.083% 2.5 MG/3 ML Neb Soln NEB PRN (10:13)
[2022-03-02] MEDS ORDERED: HYDROmorphone 1 MG/ML Syringe IVPUSH PRN (10:13)
[2022-03-02] MEDS ORDERED: fentaNYL 50 MCG/ML SDV IVPUSH PRN (10:13)
[2022-03-02] MEDS ORDERED: Naloxone 0.4 MG/ML SDV IVPUSH PRN (10:13)
[2022-03-02] MEDS ORDERED: Metoclopramide 10 MG/2 ML SDV IVPUSH PRN (10:13)
[2022-03-02] MEDS ORDERED: Ondansetron 4 MG/2 ML SDV ONE ×2 (10:24→11:13)
[2022-03-02 10:38] LABS: CARBON DIOXIDE,CO2 23.8 mmol/L (21.0-32.0); POTASSIUM,K 3.9 mmol/L (3.5-5.1)
[2022-03-02] MEDS ORDERED: Ketorolac 30 MG/ML SDV ONE (10:44)
[2022-03-02] MEDS ORDERED: Dexamethasone 4 MG/ML 5 ML MDV ONE (10:44)
[2022-03-02] MEDS ORDERED: Morphine Sulfate 10mg/ml SDV ONE (10:58)
[2022-03-02] MEDS ORDERED: Acetaminophen/HYDROcodone 325-5 MG Tab PO PRN (11:38)
== END 2022-03-02 13:05 | disposition home or self-care (01) ==
LOC: MW.SDS 09:04
PROVIDERS: ATTEND Obstetrics & Gynecology
DX: N80.9 Endometriosis, unspecified (principal); K66.0 Peritoneal adhesions (postprocedural) (postinfection); N83.291 Other ovarian cyst, right side; N94.89 Other specified conditions associated with female genital organs and menstrual cycle; Z87.891 Personal history of nicotine dependence; Z98.890 Other specified postprocedural states; Z90.49 Acquired absence of other specified parts of digestive tract
CPT/HCPCS: 00952; 36415; 80053; 81025; 85025; 86850; 86900; 86901; J0330; J1100; J1885; J2270; J2405; J2704; J3010; J3490; J7030